=== PATIENT | male | born 1980 | race Hispanic/Latino ===

== ENCOUNTER 2020-07-21 01:33 | Emergency (ER) | payer OTHER ==
[~2020-07-21] VITALS: Ht 157.5 cm; Wt 69.0 kg
== END 2020-07-21 03:37 | disposition home or self-care (01) ==
LOC: ED 01:33
DX: F32.9 Major depressive disorder, single episode, unspecified (principal); F15.10 Other stimulant abuse, uncomplicated
CPT/HCPCS: 80053; 80176; 81001; 84443; 85025; 99284

== ENCOUNTER 2025-01-11 20:19 | Emergency (ER) | payer OTHER ==
[~2025-01-11] VITALS: Ht 157.5 cm; Wt 80.0 kg
[2025-01-11 21:24] LABS: BASOPHILS 0.8 % (0.2-1.2); EOSINOPHILS 0.4 % (0.8-7.0); LYMPHOCYTES 21.4 % (21.8-53.1); MCH 29.2 PG (25.7-32.2); MCHC 34.2 g/dL (32.3-36.5); MCV 85.3 fL (79.0-92.2); MONOCYTES 12.2 % (5.3-12.2); NEUTROPHILS 64.9 % (34.0-67.9); RBC 5.04 M/uL (4.63-6.08)
[2025-01-11 21:39] LABS: ALT (SGPT) 58.0 U/L (14-59); AST (SGOT) 73.0 U/L (15-37); GLOMERULAR FILTRATION RATE,EST 101.0 mL/min (>60); PROTEIN, TOTAL 7.8 g/dL (6.4-8.2); UREA NITROGEN 16.0 mg/dL (7-18)
[2025-01-11 23:09] VITALS: BP 122/85
== END 2025-01-11 23:09 | disposition home or self-care (01) ==
LOC: ED 20:19
PROVIDERS: Family Medicine
DX: F19.10 Other psychoactive substance abuse, uncomplicated (principal); E86.0 Dehydration; R74.8 Abnormal levels of other serum enzymes
CPT/HCPCS: 36415; 80053; 85025; 99283